=== PATIENT | male | born 1985 | race Caucasian/White ===

== ENCOUNTER 2021-12-14 09:51 | Emergency (ER) | payer OTHER | END 2021-12-14 10:47 | LOC: FER 09:51 | DX: T40.1X1A Poisoning by heroin, accidental (unintentional), initial encounter (principal); F17.200 Nicotine dependence, unspecified, uncomplicated; Y92.149 Unspecified place in prison as the place of occurrence of the external cause | CPT/HCPCS: 99284 ==

== ENCOUNTER 2022-01-06 13:15 | Emergency (ER) | payer OTHER ==
[2022-01-06] MEDS ORDERED: CEPHALEXIN500 M1 PO (14:00)
[2022-01-06] MEDS ORDERED: SILVADENE20 G1 TOP (14:00)
== END 2022-01-06 14:06 | disposition home or self-care (01) ==
LOC: FER 13:15
DX: T21.24XA Burn of second degree of lower back, initial encounter (principal); T22.221A Burn of second degree of right elbow, initial encounter; F17.210 Nicotine dependence, cigarettes, uncomplicated; X10.0XXA Contact with hot drinks, initial encounter
CPT/HCPCS: 99283